=== PATIENT | female | born 1950 | race Two or more races ===

== ENCOUNTER 2025-05-03 19:55 | Emergency (ER) | payer OTHER ==
[~2025-05-03] VITALS: Ht 167.6 cm; Wt 72.7 kg
[2025-05-03 19:57] VITALS: PULSE 74; RESP 16; O2SAT 98
[2025-05-03 19:58] VITALS: TEMP 97.6
--- NOTE | 2025-05-03 20:17 | ED.PDOC ---
HPI Comments 74 year old female presents to the ED with chief complaint of dog bite. Patient reports that her dog and her daughter's dog began to fight an hour ago and when attempting to break them up, her own dog attacked her. Patient relays that she was bit on the left arm multiple times and now has multiple lacerations, swelling, pain, and some deformity noted to her left arm. Patient denies any further injuries, numbness, weakness, or tingling. Chief Complaint: Animal Bite Time Seen by MD: 20:15 Reviewed Notes: Nurses Notes, Medications, Allergies Allergies: Coded Allergies: Penicillins (Verified Allergy, Unknown, 05/03/25) Home Meds Active Scripts Bacitracin Base (Bacitracin) 500 Unit/Gm Oin, 500 UNIT TOP BID, #30 GM Prov:JENN BAUER PAC 05/03/25 Hydrocodone-Acetaminophen (Hydrocodone Bitartrate/AC 5-325 mg) 1 Tab Tab, 1 TAB PO Q6HP PRN, #20 TAB Prov:JENN BAUER [facility] 05/03/25 Amoxicillin & Pot Clavulanate (AUGMENTIN TABLET) 875 Mg Tb, 875 MG PO BID for 10 Days, #20 TAB Prov:JENN BAUER PAC 05/03/25 Information Source: Patient Mode of Arrival: Wheelchair Severity: Moderate Severity of Laceration: Deformity, Controlled Bleeding Complexity: Intermediate Timing: Hours Prehospital treatment: None Laceration Location: Arm Mechanism: Dog Last Tetanus: Unknown Laceration Length (cm): 5 Skin Type: Avulsion, Jagged, Irregular Depth of Injury: SQ Tendon Injury: 0% Capillary Refill: < 3 seconds Tender: Moderate Discharge: Serosanguinous Erythema: Localized to Wound Edges, Surrounding Tissues Past Medical History PAST MEDICAL HISTORY: Denies Surgical History: Denies all surgeries PHYSICAL TRAINER History: No Pertinent PHYSICAL TRAINER History Family History Family History: Reviewed,noncontributory to illness Social History Smoker: Non-Smoker Alcohol: Denies ETOH Use Drugs: Denies Drug Use Lives In: Home Constitutional: denies: chills, diaphoresis, fatigue, fever, malaise, sweats, weakness, others EENTM: denies: blurred vision, double vision, ear bleeding, ear discharge, ear drainage, ear pain, ear ringing, eye pain, eye redness, hearing loss, mouth pain, mouth swelling, nasal discharge, nose bleeding, nose congestion, nose pain, photophobia, tearing, throat pain, throat swelling, voice changes, others Respiratory: denies: cough, hemoptysis, orthopnea, SOB at rest, shortness of breath, SOB with excertion, stridor, wheezing, others Cardiovascular: denies: chest pain, dizzy spells, diaphoresis, Dyspnea on exertion, edema, irregular heart beat, left arm pain, lightheadedness, palpitations, PND, syncope, others Gastrointestinal: denies: abdomen distended, abdominal pain, blood streaked bowels, constipated, diarrhea, dysphagia, difficulty swallowing, hematemesis, melena, nausea, poor appetite, poor fluid intake, rectal bleeding, rectal pain, vomiting, others Genitourinary: denies: abnormal vagina bleeding, burning, dyspareunia, dysuria, flank pain, frequency, hematuria, incontinence, pain, , vagina discharge, urgency, others Neurological: denies: dizziness, fainting, headache, left sided numbness, left sided weakness, numbness, paresthesia, pre-existing deficit, right sided numbness, right sided weakness, seizure, speech problems, tingling, tremors, weakness, others Musculoskeletal: reports: others (Left arm swelling and bruising); denies: back pain, gout, joint pain, joint swelling, muscle pain, muscle stiffness, neck pain Integumetry: reports: laceration (To left arm); denies: bruises, change in color, change in hair/nails, dryness, lesions, lumps, rash, wounds, others Allergic/Immunocompromised: denies: Difficulty Healing, Frequent Infections, Hives, Itching, others Hematologic/Lymphatic: denies: anemia, blood clots, easy bleeding, easy bruising, swollen glands, others Endocrine: denies: excessive hunger, excessive sweating, excessive thirst, excessive urination, flushing, intolerance to cold, intolerance to heat, unexplained weight gain, unexplained weight loss, others Psychiatric: denies: anxiety, bipolar disorder, depression, hopeless, panic disorder, schizophrenia, sleepless, suicidal, others All Other Systems: Reviewed and Negative Physical Exam General Appearance: Moderate Distress (Due to our pain concerns.), Normal HEENT: Normal ENT Inspection, Pharynx Normal, TMs Normal Neck: Full Range of Motion, Non-Tender, Normal, Normal Inspection Respiratory: Chest Non-Tender, Lungs Clear, No Accessory Muscle Use, No Respiratory Distress, Normal Breath Sounds Cardiovascular: No Edema, No JVD, No Murmur, No Gallop, Normal Peripheral Pulses, Regular Rate/Rhythm Breast Exam: Deferred Gastrointestinal: No Organomegaly, Non Tender, No Pulsatile Mass, Normal Bowel Sounds, Soft Genitalia: Deferred Pelvic: Deferred Rectal: Deferred Extremities: Other (Patient extensive left arm edema with multiple puncture wounds and a laceration due to the dog bite. No muscle or tendon involvement. Distal neurovascularly intact. No active bleed.) Neurologic: Alert, No Motor Deficits, Normal Affect, Normal Mood, No Sensory Deficits Cerebellar Function: Normal Reflexes: Normal Skin: Dry, Normal Color, Warm Lymphatic: No Adenopathy Was a procedure done? Was a procedure done?: Yes Sedation Sedation?: No Other Procedure Notes 6 cc of 1% lidocaine was utilized for local anesthesia of horizontal laceration to left forearm due to dog bite. Sterile field was placed. Copious irrigation performed. Seven 4-0 sutures were placed in a simple interrupted fashion to approximate the wound to aid in healing. All wounds were cleaned, antibiotic ointment applied and clean dressing wrapped throughout. Patient tolerated pr ocedure well. Differential diagnosis Generic Laceration: Fracture, Laceration, Other (Dog bite) X-Ray, Labs, Meds, VS Vital Signs Date Time Temp Pulse Resp B/P (MAP) Pulse Ox O2 Delivery O2 Flow Rate FiO2 05/03/25 22:00 57 14 109/53 (71) 95 05/03/25 20:52 72 14 110/71 05/03/25 20:22 74 16 105/66 05/03/25 19:58 97.6 78 18 97/56 (70) 100 97.6 05/03/25 19:57 98.2 74 16 105/66 (79) 98 98.2 05/03/25 19:57 74 16 98 Room Air* 0 21 Current Medications Medications (Trade) Dose Ordered Sig/Jodie Route Start Time Stop Time Status Last Admin Hydromorphone HCl (Dilaudid Injection) 0.5 mg ONCE ONCE IM 05/03/25 20:15 05/03/25 20:16 DC 05/03/25 20:22 Diphtheria/ Tetanus/Acell Pertussis (Boostrix T-Dap) 0.5 ml ONCE ONCE IM 05/03/25 20:15 05/03/25 20:16 DC 05/03/25 20:21 Ondansetron HCl (Zofran) 4 mg ONCE ONCE IV 05/03/25 20:30 05/03/25 20:31 DC 05/03/25 20:37 Neomycin/ Polymyxin/ Bacitracin (Triple Antibiotic) 3 applic ONCE ONCE TOP 05/03/25 21:15 05/03/25 21:16 DC 05/03/25 21:25 X-Ray, Labs, Meds, VS Comment All studies performed the ED were evaluated by me personally. Imaging studies were unremarkable for any retained foreign body or fractures of the forearm. The patient sustained a dog bite with a laceration. Advised patient utilize antibiotics as directed, pain medication as needed and return to ED or primary care provider in 10 days for re-evaluation and probable suture removal. Time of 1ST Reevaluation: 22:42 Reevaluation 1ST: Improved Consultation: PCP Patient Education/Counseling: Diagnosis, Treatment Family Education/Counseling: Diagnosis, Treatment, No Family Present Departure 1 Departure Time of Disposition: 22:42 Impression: Primary Impression: Dog bite Additional Impressions: Arm laceration Arm contusion Disposition: HOME / SELF CARE / HOMELESS Condition: Stable Additional Instructions: Advised patient utilize antibiotics as directed until completion as well as pain medication as needed. Patient should return to ED or primary care provider in 10 days for re-evaluation and probable suture removal. e-Prescriptions Clindamycin Hcl (Clindamycin Hcl) 300 Mg Cap 300 MG PO QID for 10 Days, #40 CAP Prov: JENN BAUER PAC 05/03/25 Bacitracin Base (Bacitracin) 500 Unit/Gm Oin 500 UNIT TOP BID, #30 GM Prov: JENN BAUER PAC 05/03/25 Hydrocodone-Acetaminophen (Hydrocodone Bitartrate/AC 5-325 mg) 1 Tab Tab 1 TAB PO Q6HP PRN, #20 TAB Prov: JENN BAUER PAC 05/03/25 Discharged With: Self, Spouse Critical Care Note Critical Care Time?: No Stability Stability form required: No Heart Score Heart Score: Heart Score Response (Comments) Value History N/A 0 EKG N/A 0 Age N/A 0 Risk Factors N/A 0 Troponin N/A 0 Total 0 I personally scribed for JENN BAUER PAC ([email or web address]) on 05/03/25 at 20:17. Electronically submitted by Dawson Henry [email or web address]). JENN BAUER PAC May 03, 2025 20:17
[2025-05-03] MEDS: TETANUS-DIPTH-ACEL PERTUSSIS 0.5ML SYR Tdap IM ONE (20:21)
[2025-05-03] MEDS: HYDROmorphone HCL 2 MG/ML VL/or syr IM ONE (20:22)
[2025-05-03] MEDS: ONDANSETRON HCL 4 MG/2 ML VIAL IV ONE (20:37)
[2025-05-03] MEDS: LIDOCAINE 1% HCL (LOCAL ANESTH.) INJ 20ML MDV ID ONE (21:03)
[2025-05-03] MEDS: AMOXICILLIN/CLAVUL 875 MG TAB PO ONE (21:25)
[2025-05-03] MEDS: NEOMYCIN-BACITRACIN-POLYM UNITDOSE PKG TOP OINT TOP ONE (21:25)
--- NOTE | 2025-05-03 21:34 | DVH ---
EXAM: XY L FOREARM XRAY HISTORY: Dog bite COMPARISON: None TECHNIQUE: Single frontal view of the left forearm FINDINGS/IMPRESSION: No acute fracture of the left radius or ulna. Soft tissue inflammatory changes are noted.
[2025-05-03 22:00] VITALS: BP 109/53; PULSE 57; RESP 14; O2SAT 95
[2025-05-03] MEDS ORDERED: AUG875T PO (22:43)
[2025-05-03] MEDS ORDERED: BACIOIN15 TOP (22:43)
[2025-05-03] MEDS ORDERED: HYDR-4902 PO (22:43)
[2025-05-03] MEDS ORDERED: CLIN1CAP70 PO (23:04)
[2025-05-03] MEDS: HYDROcodone-ACET 10/325MG TAB PO ONE (23:06)
== END 2025-05-03 23:14 | disposition home or self-care (01) ==
LOC: ER 19:55
DX: S41.112A Laceration without foreign body of left upper arm, initial encounter (principal); Z88.0 Allergy status to penicillin; W54.0XXA Bitten by dog, initial encounter; Y93.89 Activity, other specified; Y92.89 Other specified places as the place of occurrence of the external cause; Y99.8 Other external cause status
CPT/HCPCS: 12002; 73090; 90471; 90715; 96372; 96374; 99284; J1171; J2003; J2405